=== PATIENT | female | born 1980 | race Caucasian/White ===

== ENCOUNTER 2020-06-06 10:14 | Observation (INO) | payer SELFPAY ==
[2020-06-06] VITALS (7 sets, daily range): BP systolic 106–143; BP diastolic 66–97
[~2020-06-06] VITALS: Ht 157.5 cm; Wt 80.8 kg
[~2020-06-06 10:14] MED LIST: AMOXICILLIN/CL875 MG PO; AMOXICILLIN500 MG PO; AUGMENTIN875TAB PO; BACTRIM DS1 TAB PO; CELEXA20 M1 PO; CIPRO PO; CIPRO500 MG OR; DIFLUCAN150 MG PO; DOXYCYCL HYC100 MG PO; FIORICET 50-3001 CAP PO; FLONASE NASAL50 MCG; HORMONE; HYDROCHLOROT12.5 MG PO; KETOCONAZOLE2 % EX; LEVAQUIN750 MG PO; LISINOPRIL10 MG PO; LUPRON DEPOT11.25 MG; METOPROL TAR25 M1 PO; NAPROSYN375 MG PO; NAPROSYN500 MG PO; NO MEDICATIONS; PAMIX50 MG/ML PO; PAROXETINE20 MG PO; PERCOCET 5/325M1 TAB PO; PHENERGAN12.5 MG/TA PO; PREDNISONE10 MG PO; PREDNISONE20 MG PO; TESSALON PER100 MG PO; TORADOL PO; ULTRAM50 MG PO; VENLAFAXINE H37.5 M1 PO; ZITHROMAX500 MG PO; ZOFRAN4 M1 PO
--- NOTE | 2020-06-06 10:22 | NUR ---
PATIENT AMBULATED TO ROOM WITH SLOW STEADY GAIT AND PHYSICIAN AT BEDSIDE FOR EVAL
--- NOTE | 2020-06-06 10:25 | NUR ---
INTRODUCED SELF TO PT. REPORTS SEVERE RIGHT FLANK PAIN AND BURNING WITH URINATION STARTING TODAY @ 0800. PT UNCOMFORTABLE AND UNABLE TO SIT WITHOUT DISCOMFORT. IV INITIATED TO RAC WITH BLOOD SPECICMENS OBTIANED. TOLERATED WELL.
[2020-06-06 10:41] LABS: HEMATOCRIT 44.6 % (37.0-47.0); HEMOGLOBIN 14.6 g/dl (12.0-16.0); IMMATURE GRANULOCYTES 0.4 % (0.0-5.0); MEAN CELL VOLUME 91.4 fL CALC (80.0-100.0); MEAN CORPUSCULAR HGB 29.9 pG CALC (26.0-32.0); MEAN CORPUSCULAR HGB CONC 32.7 g/dL CAL (32.0-36.0); NEUT# 9.29 thou/uL (2.00-7.15); RED BLOOD COUNT 4.88 mill/uL (4.20-5.60); RED CELL DISTRI WIDTH 14.7 % (11.5-15.5)
[2020-06-06 10:58] LABS: ALBUMIN 4.6 g/dL (3.2-5.0); ALKALINE PHOSPHATASE 93 u/l (38-126); AMYLASE 75 u/l (30-110); ANION GAP 14 (6-22 (CALC)); BILIRUBIN, TOTAL 0.5 mg/dL (0.0-1.4); BUN 15 mg/dL (7-17); BUN/CREATININE RATIO 17 (12-20 (CALC)); CARBON DIOXIDE 23 mmol/l (22-30); CHLORIDE 108 mmol/l (95-108); CREATININE 0.9 mg/dL (0.5-1.0); GFR > 60 ML/MIN (>=60 (CALC)); GFR FOR AFR.AMER. > 60 ML/MIN (>=60 (CALC)); LIPASE 49 u/l (23-300); POTASSIUM 3.8 mmol/l (3.5-5.1); SGOT/AST 30 u/l (14-36); SODIUM 141 mmol/l (137-146); TOTAL PROTEIN 8.7 g/dL (6.3-8.2)
--- NOTE | 2020-06-06 11:00 | NUR ---
PT MEDICATED WITH DILAUDID PER EDP ORDER FOR CONTINUED 03/13. PT PLACED BACK IN BED AND INSTRUCTED TO NOTIFY NURSE IF NEEDING TO GET OOB, PT SHOWED UNDERSTANDING. CALL LIGHT GIVEN.
--- NOTE | 2020-06-06 12:04 | NUR ---
DR ABRAHAM IN ROOM SPEAKING WITH PT
[2020-06-06] MEDS ORDERED: TOPROL XL50 MG PO (12:05)
[2020-06-06] MEDS ORDERED: LOPRESSOR25 M1 PO (12:05)
--- NOTE | 2020-06-06 12:10 | NUR ---
PT URINATED APPX 200 CC OF CLOUDY YELLOW URINE. SPECIMEN SENT TO LAB. PT REPORTS PAIN LEVEL 10. DISCUSSED CONT WAIT TIME FOR RESULTS. VEBRALIZED UNDERSTANDIGN. DENIES ANY NEEDS. CALL LIGHT WITHIN REACH.
[2020-06-06 12:29] LABS: URINE BILIRUBIN - DIPSTICK NEGATIVE (NEGATIVE); URINE BLOOD DIPSTICK LARGE (NEGATIVE); URINE COLOR YELLOW; URINE GLUCOSE - DIPSTICK NEGATIVE (NEGATIVE); URINE KETONE NEGATIVE (NEGATIVE); URINE PH 6.5 (4.5-8.0); URINE PROTEIN - DIPSTICK >=300 mg/dL (NEG-TRACE); URINE SPECIFIC GRAVITY 1.025; URINE UROBILINOGEN - DIPSTICK 0.2 E.U./dL (0.2)
[2020-06-06 12:30] LABS: URINE LEUK ESTERASE SMALL (NEGATIVE); URINE NITRITE - DIPSTICK POSITIVE (Negative)
[2020-06-06 12:37] LABS: URINE SQUAMOUS EPITHELIAL CELL FEW EPI/hpf (0-FEW)
[2020-06-06 12:38] LABS: URINE BACTERIA FEW hpf; URINE WBC TNTC WBC/hpf (0-5)
--- NOTE | 2020-06-06 12:45 | NUR ---
PT RESTING ON STRETHCER. C/O INCREASING PAIN LEVEL 5/10 AND NAUSEA. PT PROVIDED BLANKET PER REQUEST. DR ABRAHAM INFOMRED
--- NOTE | 2020-06-06 13:45 | NUR ---
PATIENT AMBULATED TO THE BATHROOM WITH A STEADY GAIT.
--- NOTE | 2020-06-06 14:25 | NUR ---
REPORT GIVEN TO ROYA HOSKINS ON MS
--- NOTE | 2020-06-06 14:45 | NUR ---
Admission Note Report Given to: USMAN PRYOR Transported by: X Wheelchair Stretcher Transported with: X Nurse Transporter X Patent IV O2 Percussion Instructor Location: ICU X [facility]2 PATIENT TO ROOM 278 VIA WHEELCHIAR IN STABLE CONDITION, TRANSPORTED BY GATO ROACH.
--- NOTE | 2020-06-06 19:45 | NUR ---
PT LAYING IN BED, ALERT AND AWAKE. PHYSICAL ASSESMENT COMPLETE. REPORTS PAIN AT 3/10 AND DECLINES OFFER FOR PRN ANALGESIC. PT UP TO BATHROOM AND BACK TO BED. GAIT STEADY AND BALANCED. PT REPORT HER LEGS FEEL "WEAK". URINE YELLOW AND SLIGHTLY CLOUDY. PLAN OF CARE REVIEWED, PT VERBALIZES UNDERSTANDING AND DENIES QUESTIONS. DENIES FURTHER NEEDS AT THIS TIME. CALL REDDY WITHIN REACH, AGREES TO CALL PRN.
[2020-06-07] VITALS: BP 101/64
--- NOTE | 2020-06-07 | NUR ---
PT LAYING IN BED WITH EYES CLOSED, APPEARS TO BE SLEEPING COMFORTABLY. RESPIRATIONS REGULAR AND UNLABORED. NO APPARENT DISTRESS. CALL REDDY REMAINS WITHIN REACH.
[2020-06-07 04:00] VITALS: BP 101/64
--- NOTE | 2020-06-07 04:05 | NUR ---
PT LAYING IN BED WITH EYES CLOSED, APPEARS TO BE SLEEPING COMFORTABLY. RESPIRATIONS REGULAR AND UNLABORED. NO APPARENT DISTRESS. CALL REDDY REMAINS WITHIN REACH.
[2020-06-07 06:00] LABS: IMMATURE GRANULOCYTES 0.4 % (0.0-5.0); MEAN CELL VOLUME 93.2 fL CALC (80.0-100.0); MEAN CORPUSCULAR HGB 30.1 pG CALC (26.0-32.0); MEAN CORPUSCULAR HGB CONC 32.2 g/dL CAL (32.0-36.0); NEUT# 8.06 thou/uL (2.00-7.15); RED BLOOD COUNT 3.96 mill/uL (4.20-5.60); RED CELL DISTRI WIDTH 14.8 % (11.5-15.5)
[2020-06-07 06:14] LABS: ALKALINE PHOSPHATASE 64 u/l (38-126); ANION GAP 8 (6-22 (CALC)); BILIRUBIN, TOTAL 0.7 mg/dL (0.0-1.4); BUN 11 mg/dL (7-17); BUN/CREATININE RATIO 16 (12-20 (CALC)); CARBON DIOXIDE 24 mmol/l (22-30); CHLORIDE 111 mmol/l (95-108); CREATININE 0.7 mg/dL (0.5-1.0); GFR > 60 ML/MIN (>=60 (CALC)); GFR FOR AFR.AMER. > 60 ML/MIN (>=60 (CALC)); POTASSIUM 3.8 mmol/l (3.5-5.1); SGOT/AST 21 u/l (14-36); SODIUM 140 mmol/l (137-146)
[2020-06-07 06:15] LABS: HEMATOCRIT 36.9 % (37.0-47.0); HEMOGLOBIN 11.9 g/dl (12.0-16.0)
[2020-06-07 06:26] LABS: ALBUMIN 2.9 g/dL (3.2-5.0); TOTAL PROTEIN 5.6 g/dL (6.3-8.2)
[2020-06-07 08:12] VITALS: BP 108/73
--- NOTE | 2020-06-07 08:21 | NUR ---
RECIEVED REPORT FROM GATO CADE. PT RESTING IN SEMI FOWLERS POSITION UPON ENTERING ROOM. INTRODUCED SELF TO PT AND DICUSSED POC. PT IS A/O X3. ASSESSMENT AND VITALS COMPLETED. BP 108/73, HR 80, O2 95% ON ROOM AIR. RESPIRATIONS ARE EVEN AND UNLABORED WITH NO DISTRESS NOTED. LUNG SOUNDS ARE CLEAR. HEART RHYTHM IS NORMAL. BOWEL SOUNDS ACTIVE IN ALL QUADRANTS, LAST REPORTED BM 06/05/20. RADIAL AND PEDAL PULSES STRONG. #20G IN RAC WITH IVF INFUSING PER ORDER, SITE APPEARS HEALTHY AND PATENT. PT COMPLAINS OF 5/10 PAIN IN PUBIC AREA, PT TO BE MEDICATED PER EMAR. STENT REMAINS IN PLACE. PT DENIES OF ANY ADDITIONAL NEEDS AT THIS TIME. ALL SAFTEY PRECAUTIONS ARE IN PLACE WITH CALL LIGHT IN REACH. WILL CONTINUE TO MONITOR
[2020-06-07 11:37] VITALS: BP 125/60
[2020-06-07] MEDS ORDERED: TORADOL PO (11:40)
[2020-06-07] MEDS ORDERED: TAMSULOSIN0.4 MG PO (11:46)
[2020-06-07] MEDS ORDERED: CIPROFLOXACN500 MG PO (11:47)
[2020-06-07] MEDS ORDERED: HYDROCODONE/ACE1 TAB PO (11:48)
--- NOTE | 2020-06-07 12:29 | NUR ---
PT SITTING IN HIGH ROSARIO POSITION IN BED EATING LUNCH. RESPIRATIONS ARE EVEN AND UNLBAORED ON ROOM AIR. DISCHARGE INSTRCUTIONS TO BE COMPLETED. PT DENIES OF ANY PAINS OR DISCOMFORTS AT THIS TIME. ALL SAFETY PRECAUTIONS ARE IN PLACE WITH CALL LIGHT IN REACH. WILL CONTINUE TO MONITOR
--- NOTE | 2020-06-07 13:24 | NUR ---
PT EDUCATED ON DISCHARGE INSTRUCTIONS AND NEW MEDICATIONS. PT VERBALIZEDE UNDERSTANDING. IV RMOVED WITH CATHATER STILL INTACT. PT TOLERATED WELL.PT COMPLAINS OF 5/10 PAIN.MARINE ERECTOR INFORMED BY PT THAT SHE WILL HAVE A RIDE HOME PERCOCET TO BE ADMINISTERED. WAITING FOR TRANSPORTATION. ALLL SAFETY PRECAUTIONS ARE IN PLACE WITH CALL LIGHT IN REACH. WILL CONTINUE TO MONITOR
--- NOTE | 2020-06-07 13:44 | NUR ---
Discharge instructions given. Patient verbalizes understanding of same. Discharged in stable condition via Wheelchair to Home with staff. All belongings sent with pt. PT DSICHARGED IN STABLE CONDITION VIA WHEELCHAIR ACCOMPAINED BY JITENDRA SALTER WITH ALL BELONGINGS AND DISCHARGE PAPERWORK.
== END 2020-06-07 13:44 | disposition home or self-care (01) | DRG 661 ==
LOC: ED 10:14 → ED-I 13:10 → MS2 13:23 → ED 13:23 → MS2 06-07 13:44
PROVIDERS: Emergency Medicine; ADMIT Internal Medicine; ATTEND Internal Medicine
PROC: 0TC68ZZ Extirpation of Matter from Right Ureter, Via Natural or Artificial Opening Endoscopic (ICD-10-PCS; principal; 2020-06-06)
PROC: 0T768DZ Dilation of Right Ureter with Intraluminal Device, Via Natural or Artificial Opening Endoscopic (ICD-10-PCS; 2020-06-06)
PROC: BT1DZZZ Fluoroscopy of Right Kidney, Ureter and Bladder (ICD-10-PCS; 2020-06-06)
DX: N13.6 Pyonephrosis (principal); E83.59 Other disorders of calcium metabolism; N29 Other disorders of kidney and ureter in diseases classified elsewhere; I10 Essential (primary) hypertension; F17.210 Nicotine dependence, cigarettes, uncomplicated; B96.20 Unspecified Escherichia coli [E. coli] as the cause of diseases classified elsewhere; Z87.442 Personal history of urinary calculi; Z20.822 Contact with and (suspected) exposure to COVID-19
CPT/HCPCS: J2710; Q9967

== ENCOUNTER 2021-09-01 12:33 | Inpatient (IN) | payer OTHER ==
[~2021-09-01] VITALS: Ht 157.5 cm; Wt 71.0 kg
[2021-09-01] VITALS (16 sets, daily range): BP systolic 124–171; BP diastolic 68–111
[~2021-09-01 12:33] MED LIST changes: +CIPROFLOXACN500 MG PO; +HYDROCODONE/ACE1 TAB PO; +LOPRESSOR25 M1 PO; +TAMSULOSIN0.4 MG PO; +TOPROL XL50 MG PO
--- NOTE | 2021-09-01 13:04 | NUR ---
PATIENT TO ROOM VIA WHEELCAHIR.
[2021-09-01 14:33] LABS: IMMATURE GRANULOCYTES 1.1 % (0.0-5.0); MEAN CELL VOLUME 88.7 fL CALC (80.0-100.0); MEAN CORPUSCULAR HGB 29.5 pG CALC (26.0-32.0); MEAN CORPUSCULAR HGB CONC 33.3 g/dL CAL (32.0-36.0); NEUT# 5.96 thou/uL (2.00-7.15); RED BLOOD COUNT 4.88 mill/uL (4.20-5.60); RED CELL DISTRI WIDTH 15.4 % (11.5-15.5)
[2021-09-01 14:56] LABS: HEMATOCRIT 43.3 % (37.0-47.0); HEMOGLOBIN 14.4 g/dl (12.0-16.0)
[2021-09-01 15:00] LABS: ALBUMIN 3.2 g/dL (3.2-5.0); CREATININE 1.6 mg/dL (0.5-1.0); POTASSIUM 3.2 mmol/l (3.5-5.1)
[2021-09-01 15:02] LABS: BILIRUBIN, TOTAL 1.1 mg/dL (0.0-1.4); TOTAL PROTEIN 7.3 g/dL (6.3-8.2)
[2021-09-01 18:06] LABS: URINE BILIRUBIN - DIPSTICK NEGATIVE (NEGATIVE); URINE BLOOD DIPSTICK MODERATE (NEGATIVE); URINE COLOR YELLOW; URINE GLUCOSE - DIPSTICK NEGATIVE (NEGATIVE); URINE KETONE NEGATIVE (NEGATIVE); URINE PH 6.5 (4.5-8.0); URINE PROTEIN - DIPSTICK 30 mg/dL (NEG-TRACE); URINE UROBILINOGEN - DIPSTICK 0.2 E.U./dL (0.2)
[2021-09-01 18:10] LABS: URINE LEUK ESTERASE MODERATE (NEGATIVE); URINE NITRITE - DIPSTICK POSITIVE (Negative)
[2021-09-01 18:15] LABS: URINE BACTERIA FEW hpf; URINE SQUAMOUS EPITHELIAL CELL FEW EPI/hpf (0-FEW); URINE WBC 50-100 WBC/hpf (0-5)
--- NOTE | 2021-09-01 20:00 | NUR ---
Reassessment of patient completed. No distress noted.
--- NOTE | 2021-09-01 20:58 | NUR ---
RECEIVED REPORT FROM ER NURSE.
--- NOTE | 2021-09-01 20:58 | NUR ---
REPORT CALLED TO FLOOR. PT TRANSFERED WITHOUT INCIDENT.
--- NOTE | 2021-09-01 21:01 | NUR ---
PT ARRIVED TO MED SURG FLOOR ACCOMPANIED BY ER, NURSE. PT ORIENTED TO ROOM/CALL LIGHT USE. PT IN BED; A&O X3. EVEN AND UNLABORED RESPIRATIONS; CLEAR LUNG SOUNDS UPON AUSCULTATION. HYPOACTIVE BOWEL SOUNDS X4 QUADRANTS. NO DISTRESS NOTED. PT C/O PAIN, BUT SAYS IT IS TOLERABLE. IV SITE HEALTHY AND PATENT. SKIN IS INTACT. SAFETY PRECAUTIONS IN PLACE WITH CALL LIGHT IN REACH.
--- NOTE | 2021-09-01 23:30 | NUR ---
PT C/O ABN PAIN 01/11; ADMINISTERED PAIN MEDICATION PER EMAR. NEW IVF BAG HANGING. REMINDED PT ABOUT NPO SATUS AFTER MIDNIGHT; PT SHOWED UNDERSTANDING. SAFETY PRECAUTIONS IN PLACE. CALL LIGHT WITHIN REACH.
--- NOTE | 2021-09-02 00:10 | NUR ---
PT SLEEPING. NO DISTRESS OR PAIN NOTED. SAFETY PRECAUTIONS IN PLACE WITH CALL LIGHT IN REACH.
--- NOTE | 2021-09-02 03:43 | NUR ---
PT C/O ABDOMINAL PAIN 10/; ADMINISTERES PAIN MEDICATION PER EMAR. SAFETY PRECAUTIONS IN PLACE WITH CALL LIGHT IN REACH.
[2021-09-02 04:00] VITALS: BP 131/71
--- NOTE | 2021-09-02 04:35 | NUR ---
PT SLEEPING. PT'S TEMP 102.7; ADMINISTERED TYLENOL PER EMAR. NO DISTRESS NOTED. SAFETY PRECAUTIONS IN PLACE. CALL LIGHT WITHIN REACH.
[2021-09-02 05:22] LABS: MEAN CELL VOLUME 92.7 fL CALC (80.0-100.0); MEAN CORPUSCULAR HGB CONC 31.3 g/dL CAL (32.0-36.0); RED BLOOD COUNT 3.96 mill/uL (4.20-5.60); RED CELL DISTRI WIDTH 16.8 % (11.5-15.5)
[2021-09-02 05:24] LABS: HEMOGLOBIN 11.5 g/dl (12.0-16.0)
[2021-09-02 05:25] LABS: HEMATOCRIT 36.7 % (37.0-47.0)
[2021-09-02 05:44] LABS: CREATININE 1.5 mg/dL (0.5-1.0); MAGNESIUM 1.5 mg/dL (1.6-2.3); POTASSIUM 3.4 mmol/l (3.5-5.1)
--- NOTE | 2021-09-02 07:00 | NUR ---
RECEIVE REPORT FROM JAN NICKERSON.
[2021-09-02 08:00] VITALS: BP 130/79
--- NOTE | 2021-09-02 08:00 | NUR ---
PATIENT ALERT AND ORIENTED X3. NO RESPIRATORY DISTRESS AT THIS TIME. PATIENT REFER PAIN. MEDICATIONS FOR PAIN GIVED. PATIENT IS EDUCATES ABOUT MEDICATIONS, PAIN MANAGEMENT AND NURSING PLAN FOR TODAY. PATIENT REFER UNDERSTAND.
--- NOTE | 2021-09-02 09:25 | NUR ---
PRELIMINARY CULTURE RESULTS CALLED TO . / VIALS GROWING GRAM (-) RODS. NEW ORDER TO CHANGE ROCEPHIN TO ZOSYN UNTIL FINAL C+S RESULTS.
--- NOTE | 2021-09-02 13:45 | NUR ---
PATIENT RETURNING FROM OR. RECEIVED REPORT FROM OR NURSE. PATIENT STABLE AT THIS TIME. NO PAIN. FOLLOW UP MEDICAL ORDER AND AFTER OR PROCEDURE PROTOCOL.
[2021-09-02 14:24] VITALS: BP 118/82
--- NOTE | 2021-09-02 20:00 | NUR ---
PT WALKING AROUND IN ROOM, NO DISTRESS NOTED, BED IN LOW POSITION, CALL LIGHT WITHIN REACH
[2021-09-02 23:52] VITALS: BP 157/77
--- NOTE | 2021-09-03 00:24 | NUR ---
PT IN BED SLEEPING, NO DISTRESS NOTED, BED IN LOW POSITION, CALL LIGHT IN REACH
--- NOTE | 2021-09-03 02:24 | NUR ---
PT IV INFILTRATED AND SHE IS SUPPOSED TO BE ON IV FLUID AND IV ZOSYN. 5 PEOPLE INCLUDING THE WOOD CARVING MACHINE OPERATOR HAS TRIED FOR AN IV AND BEEN UNSUCCESSFUL, CALLED DR FOX HE SAID OK TO LEAVE FOR THE MORNING AND SEE WHAT THEY CAN DO.
--- NOTE | 2021-09-03 03:47 | NUR ---
PT IN BED RESTING NOT IN ANY DISTRESS, BED IN LOW POSITION, CALL LIGHT IN REACH
[2021-09-03 04:04] VITALS: BP 159/90
--- NOTE | 2021-09-03 04:26 | NUR ---
PT HAD LOW GRADE FEVER THIS MORNING, GAVE TYLENOL
[2021-09-03 05:25] LABS: HEMOGLOBIN 10.1 g/dl (12.0-16.0); MEAN CELL VOLUME 88.6 fL CALC (80.0-100.0); MEAN CORPUSCULAR HGB 29.6 pG CALC (26.0-32.0); MEAN CORPUSCULAR HGB CONC 33.4 g/dL CAL (32.0-36.0); RED BLOOD COUNT 3.41 mill/uL (4.20-5.60); RED CELL DISTRI WIDTH 15.9 % (11.5-15.5)
[2021-09-03 05:37] LABS: HEMATOCRIT 30.2 % (37.0-47.0)
[2021-09-03 06:02] LABS: CREATININE 1.5 mg/dL (0.5-1.0); MAGNESIUM 1.8 mg/dL (1.6-2.3); POTASSIUM 3.3 mmol/l (3.5-5.1)
--- NOTE | 2021-09-03 08:00 | NUR ---
PT RESTING IN BED, COMPLAINS OF PAIN, SHE HAS NO IV AT THIS TIME AND WAS TOLD HAD NO PAIN MEDS BY MOUTH, REQUESTED MD TO ADD PO PAIN MEDS TO EMAR,
[2021-09-03 08:13] VITALS: BP 142/93
--- NOTE | 2021-09-03 12:00 | NUR ---
AFTER A COUPLE TRIES PT GOT IV IN RIGHT THUMB AREA, STARTED ZOYSN AND IV INFILTRATED. WILL TRY TO FIND ANOTHER PERSON TO GET IV IN PT
--- NOTE | 2021-09-03 17:40 | NUR ---
PT IS REFUSING FOR ANYONE ELSE TO TRY TO GET AN IV IN HER. THIS IS AFTER 3 NURSES INCLUDING GENERAL PASSENGER AGENT, FLOOR NURSE AND ICU NURSE. MD RUDDY IS AWARE THAT PT IS MISSING HER ANTIBOTICS
--- NOTE | 2021-09-03 19:15 | NUR ---
REPORT RECEIVED FROM Sommer MAJOR RN.
[2021-09-03 19:23] VITALS: BP 158/93
--- NOTE | 2021-09-03 19:58 | NUR ---
1450 GAVE PT LORATAB WITH HER SENNA, SCANNED IT BUT IT DID NOT STAY ON EMAR.
--- NOTE | 2021-09-03 20:00 | NUR ---
PATIENT ASSEMENT COMPLETED AT THIS TIME. NO IV ACCESS. PER DAY SHIFT NURSE DR WONG, WRITTER TO VERFIY WITH ABOUT PTS PROJECTIVE COURSE OF ACTION.
--- NOTE | 2021-09-03 20:09 | NUR ---
CALL TO DR FOX REGARDING IV ACCESS AND ANTIBIOTIC COURSE, POTASSIUM OF 3.3 ALSO REPORTED. ORDERS TO FOLLOW.
--- NOTE | 2021-09-04 00:06 | NUR ---
3/3 BAG OF POTASSIUM INFUSION HUNG AT THIS TIME. A YESENIA WOODSN TO WITNESS.
--- NOTE | 2021-09-04 01:10 | NUR ---
PATIENT RESTING COMOFRTABLY, DENIES ANY CURRENT NEEDS, CALL LIGHT AND BEDSIDE TABLE WITHIN REACH.
--- NOTE | 2021-09-04 03:31 | NUR ---
PATIENT AWAKE, CURRENT PAIN 8/10, PATIENT MEDICATE PATIENT PROVIDED WITH WARM BLANKETS PER REQUEST.
[2021-09-04 04:01] VITALS: BP 166/90
--- NOTE | 2021-09-04 04:22 | NUR ---
LAB IN TO DRAW MORNING LABS, PER ADVANCED MANUFACTURING CONSULTANT PATIENT VOMITING IN EMESIS BAG
[2021-09-04 05:00] LABS: HEMATOCRIT 32.1 % (37.0-47.0); HEMOGLOBIN 10.7 g/dl (12.0-16.0); MEAN CELL VOLUME 88.2 fL CALC (80.0-100.0); MEAN CORPUSCULAR HGB 29.4 pG CALC (26.0-32.0); MEAN CORPUSCULAR HGB CONC 33.3 g/dL CAL (32.0-36.0); RED BLOOD COUNT 3.64 mill/uL (4.20-5.60); RED CELL DISTRI WIDTH 15.8 % (11.5-15.5)
--- NOTE | 2021-09-04 05:15 | NUR ---
TYLEOL ADMINISTERED FOR TEMP OF 100.1
[2021-09-04 05:20] LABS: ANION GAP 11 (6-22 (CALC)); BUN 15 mg/dL (7-17); BUN/CREATININE RATIO 13 (12-20 (CALC)); CARBON DIOXIDE 19 mmol/l (22-30); CHLORIDE 112 mmol/l (95-108); CREATININE 1.1 mg/dL (0.5-1.0); GFR 55 ML/MIN (>=60 (CALC)); GFR FOR AFR.AMER. > 60 ML/MIN (>=60 (CALC)); MAGNESIUM 1.7 mg/dL (1.6-2.3); POTASSIUM 3.5 mmol/l (3.5-5.1); SODIUM 138 mmol/l (137-146)
--- NOTE | 2021-09-04 07:03 | NUR ---
PATIENT UP TO THE RESTROOM AT THIS TIME. STATES SHE HAS BEEN BLEEDING. PT DID NOT FLUSH IN ORDER TO SHOW WRITTER. MINIMAL BLOOD NOTED IN TOILET. PT H AND H REMAINS STABLE.
[2021-09-04 07:31] VITALS: BP 142/81
--- NOTE | 2021-09-04 08:00 | NUR ---
REC'D REPORT FROM SPECIAL EDUCATION PARAPROFESSIONAL.PT SLEEPING IN BED, NO S/S OF DISCOMFORT OR DISTRESS
--- NOTE | 2021-09-04 12:00 | NUR ---
PT RESTING COMFORTABLY IN BED AFTER PAIN MEDICATION ADMINISTERED. SHE STATES SHE STILL HAS NOT HAD A BOWEL MOVEMENT BUT HER STOMACH IS ACTIVELY MAKING NOISE
[2021-09-04 15:00] VITALS: BP 151/80
--- NOTE | 2021-09-04 16:00 | NUR ---
PT LAYING IN BED RESTING, NO S/S DISTRESS OR DISCOMFORT
[2021-09-04 18:43] VITALS: BP 146/72
--- NOTE | 2021-09-04 19:57 | NUR ---
REPORT GVRAS BY SIMONE. PATIENT RESTING IN BED. RESP EVEN AND UNLABORED. NO S/S OF DISTRESS NOTED. FALL AND SAFTEY PRECUATIONS IN PLACE. NO IV. NO TELE. PLAN OF CARE DISCUSSED. PATIENT INFORMED TO CALL ANY QUESTIONS OR CONCERNS.
--- NOTE | 2021-09-05 00:31 | NUR ---
PATIENT HAS A LOW GRADE FEVER OF 101.2, TYLENOL GIVEN PER MD ORDERS
[2021-09-05 04:02] VITALS: BP 146/72
--- NOTE | 2021-09-05 04:18 | NUR ---
PATIENT RESTING WITH EYES CLOSED. RESP EVEN AND UNLABORED. NO S/S OF DISTRESS NOTED. FALL AND SAFTEY PRECAUTIONS IN PLACE.
[2021-09-05 05:58] LABS: HEMATOCRIT 31.7 % (37.0-47.0); HEMOGLOBIN 10.6 g/dl (12.0-16.0); MEAN CELL VOLUME 88.3 fL CALC (80.0-100.0); MEAN CORPUSCULAR HGB 29.5 pG CALC (26.0-32.0); MEAN CORPUSCULAR HGB CONC 33.4 g/dL CAL (32.0-36.0); RED BLOOD COUNT 3.59 mill/uL (4.20-5.60); RED CELL DISTRI WIDTH 15.6 % (11.5-15.5)
[2021-09-05 06:08] LABS: ANION GAP 8 (6-22 (CALC)); BUN 11 mg/dL (7-17); BUN/CREATININE RATIO 12 (12-20 (CALC)); CHLORIDE 108 mmol/l (95-108); CREATININE 0.9 mg/dL (0.5-1.0); GFR > 60 ML/MIN (>=60 (CALC)); GFR FOR AFR.AMER. > 60 ML/MIN (>=60 (CALC)); MAGNESIUM 1.7 mg/dL (1.6-2.3); POTASSIUM 3.5 mmol/l (3.5-5.1); SODIUM 138 mmol/l (137-146)
[2021-09-05 06:18] LABS: CARBON DIOXIDE 26 mmol/l (22-30)
[2021-09-05 08:00] VITALS: BP 176/94
--- NOTE | 2021-09-05 11:19 | NUR ---
RECD REPORT FROM APPLICATIONS SUPPORT ENGINEER NURSE, PT RESTING IN BED, COMPLAINING OF PAIN, MEDICATED PT
[2021-09-05 14:15] VITALS: BP 146/88
--- NOTE | 2021-09-05 15:52 | NUR ---
PT SLEEPING, PT CAME IN TO WORK WITH PT, SHE IS NOW SITTING IN CHAIR, DENIES PAIN
[2021-09-05 19:00] VITALS: BP 161/97
--- NOTE | 2021-09-05 19:00 | NUR ---
REPORT GIVEN BY SIMONE. PATIENT RESTING IN BED WATCHING TV. C/O OF PAIN, MEDICATIED. BECKA PICC SALINE LOCKED. FALL AND SAFTEY PRECAUTIONS IN PLACE. PATIENT INFORMED TO CALL WITH ANY QUESTIONS OR CONCERNS. NO TELE. PLAN OF CARE DISCUSSED.
--- NOTE | 2021-09-06 00:46 | NUR ---
MIDNIGHT ABX STARTED. NO S/S OF DISTRESS NOTED. FALL AND SAFTEY PRECAUTIONS IN PLAC.E
[2021-09-06 03:30] VITALS: BP 153/85
--- NOTE | 2021-09-06 04:46 | NUR ---
PATIENT RESTING WITH EYES CLOSED. RESP EVEN AND UNLABORED. NO S/S OF DISTRESS NOTED. MORNING LABS DRAWN FROM [facility].
[2021-09-06 05:29] VITALS: BP 153/85
[2021-09-06 05:51] LABS: HEMOGLOBIN 9.9 g/dl (12.0-16.0); MEAN CELL VOLUME 88.1 fL CALC (80.0-100.0); MEAN CORPUSCULAR HGB 30.1 pG CALC (26.0-32.0); MEAN CORPUSCULAR HGB CONC 34.1 g/dL CAL (32.0-36.0); RED BLOOD COUNT 3.29 mill/uL (4.20-5.60); RED CELL DISTRI WIDTH 15.4 % (11.5-15.5)
[2021-09-06 05:54] LABS: ANION GAP 8 (6-22 (CALC)); BUN 14 mg/dL (7-17); BUN/CREATININE RATIO 15 (12-20 (CALC)); CARBON DIOXIDE 28 mmol/l (22-30); CHLORIDE 104 mmol/l (95-108); CREATININE 0.9 mg/dL (0.5-1.0); GFR > 60 ML/MIN (>=60 (CALC)); GFR FOR AFR.AMER. > 60 ML/MIN (>=60 (CALC)); MAGNESIUM 1.7 mg/dL (1.6-2.3); POTASSIUM 3.6 mmol/l (3.5-5.1); SODIUM 137 mmol/l (137-146)
[2021-09-06 07:16] VITALS: BP 134/85
--- NOTE | 2021-09-06 08:00 | NUR ---
PT SLEEPING IN BED, NO S/S OF DISTRESS OR DISCOMFORT
[2021-09-06] MEDS ORDERED: CEFEPIME2 GM IM (10:37)
[2021-09-06] MEDS ORDERED: AMLODIPINE BESYL5 MG PO (10:40)
[2021-09-06] MEDS ORDERED: COLACE100 MG PO (10:40)
[2021-09-06] MEDS ORDERED: HYDROCO/APAP1 TA9 PO (10:40)
--- NOTE | 2021-09-06 12:00 | NUR ---
PT RESTING IN BED, COMPLAINES OF PAIN, MEDICATED WITH PAIN MEDS REQUESTED
[2021-09-06 15:00] VITALS: BP 149/90
--- NOTE | 2021-09-06 16:00 | NUR ---
PT RESTING COMFORTABLY IN BED.
[2021-09-06 19:04] VITALS: BP 151/94
--- NOTE | 2021-09-06 20:00 | NUR ---
REPORT GIVEN BY SIMONE. PATIENT RESTING IN BED WATCHING TV. RESP EVEN AND UNLABORED. NO S/S OF DISTRESS NOTED. FALL AND SAFTEY PRECAUTIONS IN PLACE. BECKA PICC SALINE LOCKED. PLAN OF CARE DISCUSSED. PATIENT INFORMED TO CALL WITH ANY QUESTIONS OR CONCERNS.
[2021-09-07 04:15] VITALS: BP 151/89
--- NOTE | 2021-09-07 04:16 | NUR ---
PATIENT UP TO THE BATHROOM. RESP EVEN AND UNLABORED. NO S/S OF DISTRESS NOTED.
--- NOTE | 2021-09-07 07:00 | NUR ---
RECEIVE REPORT FROM KELY HOSKINS.
[2021-09-07 08:00] VITALS: BP 155/92
--- NOTE | 2021-09-07 08:00 | NUR ---
PATIENT ALERT AND ORIENTED X3. NO RESPIRATORY DISTRESS AT THIS TIME. PATIENT REPORT PAIN. GIVED TYLENOL. PATIENT IS EDUCATES ABOUT MEDICATIONS AND NURSING PLAN FOR TODAY. PATIENT REFER UNDERSTAND.
[2021-09-07 14:22] VITALS: BP 150/71
--- NOTE | 2021-09-07 19:30 | NUR ---
PATIENT UP IN THE BR AT THIS TIME-STATES NO PROBLEMS AT THIS TIME. SAFETY PRECAUTIONS REINFORCED. CALL LIGHT IN REACH. WILL CONT TO MONITOR.
[2021-09-07 20:00] VITALS: BP 136/95
--- NOTE | 2021-09-07 21:28 | NUR ---
PATIENT RESTING IN BED AT THIS TIME-AWAKE ALERT AND ORIENTEDX3. PATIENT WAS UP AND SHOWERED EARLIER. C/O HEADA XU 3/10 ON PAIN SCALE AND MEDICATED WITH TYLENOL FOR PAIN. PICC LINE TO RIGHT UPPER ARM IS INTACT AND HEALTHY. GOOD BLOOD RETURN WHEN FLUSHED PER PROTOCL. DENIES ANY DIFFICLUTY WITH URINATION AT THIS TIME. MEDICATED FOR CONSTIPATION WITH MOM 30CC PO. LUNGS ARE CLEAR. NO PERIPHERAL EDEMA NOTED. PULSES ARE PALPABLE. AWAITING DISCHARGE HOME WITH OUTPT ANTIBIOTICS. SAFETY PRECAUTIONS REINFORCED. CALL LIGHT IN REACH. WILL CONT TO MONITOR.
--- NOTE | 2021-09-07 23:07 | NUR ---
PATIENT CALLED AND C/O HEADACHE IS GETTING WORSE. ALSO C/O COLD SWEATS. MEDICATED WITH LORTAB 5/325MG PO. CALL LIGHT IN REACH. WILL CONT TO MONITOR.
--- NOTE | 2021-09-08 00:05 | NUR ---
PATIENT RESTING IN BED WATCHING TV. STATES THAT HER HEADACHE IS SLIGHTLY BETTER 8/10 ON PAIN SCALE. CEFAPIME HUNG VIA RIGHT UPPER ARM MIDLINE. CALL LIGHT IN REACH. WILL CONT TO MONITOR.
[2021-09-08 01:51] VITALS: BP 130/72
[2021-09-08 04:14] VITALS: BP 108/68
--- NOTE | 2021-09-08 04:30 | NUR ---
PATIENT APPEARS SLEEPING AT THIS TIME WITH EYES CLOSED. RESPS ARE EVEN AND UNLABORED. MIDLINE TO RIGHT UPPER ARM INTACT. CALL LIGHT IN REACH. WILL CONT TO MONITOR.
--- NOTE | 2021-09-08 07:00 | NUR ---
RECEIVE REPORT FROM CHETAN HOSKINS.
[2021-09-08 08:00] VITALS: BP 118/73
--- NOTE | 2021-09-08 08:00 | NUR ---
PATIENT ALERT AND ORIENTED X3. NO PAIN AND NO RESPIRTORY DISTRESS AT THIS TIME. PATIENT IS EDUCATES ABOUT MEDICATION, DISCHARGED AND NURSING PLAN FOR TODAY. PATIENT REFER UNDERSTAND.
[2021-09-08 11:56] LABS: BUN 18 mg/dL (7-17); BUN/CREATININE RATIO 20 (12-20 (CALC)); CARBON DIOXIDE 28 mmol/l (22-30); CHLORIDE 103 mmol/l (95-108); CREATININE 0.9 mg/dL (0.5-1.0); GFR > 60 ML/MIN (>=60 (CALC)); GFR FOR AFR.AMER. > 60 ML/MIN (>=60 (CALC)); SODIUM 138 mmol/l (137-146)
[2021-09-08 11:58] LABS: ANION GAP 11 (6-22 (CALC)); POTASSIUM 4.3 mmol/l (3.5-5.1)
[2021-09-08 12:49] LABS: HEMATOCRIT 32.7 % (37.0-47.0); HEMOGLOBIN 10.6 g/dl (12.0-16.0); IMMATURE GRANULOCYTES 0.9 % (0.0-5.0); MEAN CELL VOLUME 91.6 fL CALC (80.0-100.0); MEAN CORPUSCULAR HGB 29.7 pG CALC (26.0-32.0); MEAN CORPUSCULAR HGB CONC 32.4 g/dL CAL (32.0-36.0); NEUT# 8.7 thou/uL (2.00-7.15); RED BLOOD COUNT 3.57 mill/uL (4.20-5.60); RED CELL DISTRI WIDTH 15.7 % (11.5-15.5)
--- NOTE | 2021-09-08 13:51 | NUR ---
PATIENT DISCHARGED STABLE.
== END 2021-09-08 14:00 | disposition home or self-care (01) | DRG 854 ==
LOC: ED 12:33 → ED-I 15:08 → ED 15:08 → ED-I 17:40 → ED 18:01 → MS2 18:02
PROVIDERS: Internal Medicine; Nurse Practitioner; ADMIT Hospitalist; ATTEND Hospitalist
PROC: 0T778DZ Dilation of Left Ureter with Intraluminal Device, Via Natural or Artificial Opening Endoscopic (ICD-10-PCS; principal; 2021-09-02)
PROC: BT1F1ZZ Fluoroscopy of Left Kidney, Ureter and Bladder using Low Osmolar Contrast (ICD-10-PCS; 2021-09-02)
PROC: 05HB33Z Insertion of Infusion Device into Right Basilic Vein, Percutaneous Approach (ICD-10-PCS; 2021-09-05)
DX: A41.89 Other specified sepsis (principal); N13.6 Pyonephrosis; I12.9 Hypertensive chronic kidney disease with stage 1 through stage 4 chronic kidney disease, or unspecified chronic kidney disease; N18.9 Chronic kidney disease, unspecified; K59.00 Constipation, unspecified; F17.210 Nicotine dependence, cigarettes, uncomplicated; Z87.442 Personal history of urinary calculi; Z20.822 Contact with and (suspected) exposure to COVID-19
CPT/HCPCS: C1769; J0131; J0692; J1335; J1650; Q3014; Q9967

== ENCOUNTER 2021-09-30 10:42 | Day surgery (SDC) | payer OTHER ==
[~2021-09-30] VITALS: Ht 157.5 cm; Wt 65.8 kg
[~2021-09-30 10:42] MED LIST changes: +AMLODIPINE BESYL5 MG PO; +CEFEPIME2 GM IM; +COLACE100 MG PO; +HYDROCO/APAP1 TA9 PO
[2021-09-30] MEDS ORDERED: AMOXICILLIN250 M1 PO (11:01)
[2021-09-30 14:25] VITALS: BP 119/75
== END 2021-09-30 14:18 | disposition home or self-care (01) ==
LOC: ORM 10:42
PROVIDERS: ATTEND Urology
DX: N20.1 Calculus of ureter (principal); I10 Essential (primary) hypertension; F17.210 Nicotine dependence, cigarettes, uncomplicated; Z87.442 Personal history of urinary calculi; Z96.0 Presence of urogenital implants
CPT/HCPCS: J0131; J1956; Q9967

== ENCOUNTER 2022-04-21 21:12 | Emergency (ER) | payer OTHER ==
[~2022-04-21] VITALS: Ht 157.5 cm; Wt 65.5 kg
[~2022-04-21 21:12] MED LIST changes: +AMOXICILLIN250 M1 PO; +GOLYTELY PO; +METOPROLOL SUCC50 MG PO
[2022-04-21 21:48] VITALS: BP 127/94
[2022-04-21] MEDS ORDERED: METOPROL TAR25 MG PO (21:51)
[2022-04-21 22:00] VITALS: BP 131/100
[2022-04-21 22:06] LABS: HEMATOCRIT 38.6 % (37.0-47.0); IMMATURE GRANULOCYTES 0.3 % (0.0-5.0); MEAN CELL VOLUME 89.6 fL CALC (80.0-100.0); MEAN CORPUSCULAR HGB 30.4 pG CALC (26.0-32.0); MEAN CORPUSCULAR HGB CONC 33.9 g/dL CAL (32.0-36.0); NEUT# 17.77 thou/uL (2.00-7.15); RED BLOOD COUNT 4.31 mill/uL (4.20-5.60); RED CELL DISTRI WIDTH 13.3 % (11.5-15.5)
[2022-04-21 22:07] LABS: HEMOGLOBIN 13.1 g/dl (12.0-16.0)
[2022-04-21 22:15] LABS: ALBUMIN 4.1 g/dL (3.2-5.0); ALKALINE PHOSPHATASE 90 u/l (38-126); ANION GAP 14 (6-22 (CALC)); BILIRUBIN, TOTAL 0.7 mg/dL (0.0-1.4); BUN 9 mg/dL (7-17); BUN/CREATININE RATIO 9 (12-20 (CALC)); CARBON DIOXIDE 22 mmol/l (22-30); CHLORIDE 103 mmol/l (95-108); GFR FOR AFR.AMER. > 60 ML/MIN (>=60 (CALC)); GFR OTHER RACES > 60 ML/MIN (>=60 (CALC)); POTASSIUM 3.4 mmol/l (3.5-5.1); SGOT/AST 27 u/l (14-36); SODIUM 136 mmol/l (137-146); TOTAL PROTEIN 7.7 g/dL (6.3-8.2)
[2022-04-21] MEDS ORDERED: TAMSULOSIN0.4 MG PO (23:24)
[2022-04-21] MEDS ORDERED: BACTRIM DS1 TAB PO (23:24)
[2022-04-21] MEDS ORDERED: LORTAB5 PO (23:24)
[2022-04-21 23:42] VITALS: BP 131/100
[2022-04-22 00:18] LABS: URINE BILIRUBIN - DIPSTICK NEGATIVE (NEGATIVE); URINE BLOOD DIPSTICK SMALL (NEGATIVE); URINE COLOR YELLOW; URINE GLUCOSE - DIPSTICK NEGATIVE (NEGATIVE); URINE KETONE NEGATIVE (NEGATIVE); URINE LEUK ESTERASE LARGE (NEGATIVE); URINE NITRITE - DIPSTICK POSITIVE (Negative); URINE PROTEIN - DIPSTICK NEGATIVE (NEG-TRACE); URINE SPECIFIC GRAVITY <=1.005; URINE UROBILINOGEN - DIPSTICK 0.2 E.U./dL (0.2)
[2022-04-22 00:24] LABS: URINE BACTERIA MANY hpf; URINE MUCUS FEW hpf (NONE-FEW); URINE SQUAMOUS EPITHELIAL CELL FEW EPI/hpf (0-FEW); URINE WBC 20-50 WBC/hpf (0-5)
--- NOTE | 2022-04-25 12:18 | NUR ---
CONTACTED PT REGARDING URINE CULTURE RESULTS. PT STATES SHE IS STILL HAVING FEVERS AND NOT FEELING WELL. RECOMMENDED PT TO RETURN TO ED FOR IV ANTIBIOTICS. PT STATES SHE WILL REPORT TO THE ED LATER TODAY.
== END 2022-04-21 23:57 | disposition home or self-care (01) ==
LOC: ED 21:12
PROVIDERS: Family Medicine
DX: N13.2 Hydronephrosis with renal and ureteral calculous obstruction (principal); F17.200 Nicotine dependence, unspecified, uncomplicated; Z87.442 Personal history of urinary calculi

== ENCOUNTER 2022-08-24 15:10 | Emergency (ER) | payer OTHER ==
[~2022-08-24] VITALS: Ht 157.5 cm; Wt 68.0 kg
[~2022-08-24 15:10] MED LIST changes: +LORTAB5 PO; +METOPROL TAR25 MG PO
[2022-08-24] MEDS ORDERED: LORTAB 7.57.5 MG PO ×2 (19:10→20:16)
[2022-08-24] MEDS ORDERED: CYCLOBENZAPRINE10 MG PO ×2 (19:10→20:16)
[2022-08-24] MEDS ORDERED: NAPROXEN500 MG PO ×2 (19:10→20:16)
[2022-08-24 19:22] VITALS: BP 159/85
[2022-08-24] MEDS ORDERED: PREDNISONE10 MG PO (20:21)
== END 2022-08-24 19:22 | disposition home or self-care (01) ==
LOC: ED 15:10
DX: M43.6 Torticollis (principal); I10 Essential (primary) hypertension; F17.200 Nicotine dependence, unspecified, uncomplicated

== ENCOUNTER 2022-10-17 15:35 | Emergency (ER) | payer OTHER ==
[2022-10-17] VITALS (13 sets, daily range): BP systolic 129–156; BP diastolic 82–106
[~2022-10-17] VITALS: Ht 157.5 cm; Wt 68.6 kg
[~2022-10-17 15:35] MED LIST changes: +CYCLOBENZAPRINE10 MG PO; +LORTAB 7.57.5 MG PO; +NAPROXEN500 MG PO
[2022-10-17] MEDS ORDERED: VALIUM2 MG PO (18:26)
[2022-10-17] MEDS ORDERED: PREDNISONE10 MG PO (18:26)
[2022-10-17] MEDS ORDERED: NAPROXEN500 MG PO (18:26)
== END 2022-10-17 18:54 | disposition home or self-care (01) ==
LOC: ED 15:35
DX: M43.6 Torticollis (principal); I10 Essential (primary) hypertension; F17.200 Nicotine dependence, unspecified, uncomplicated

== ENCOUNTER 2023-05-27 19:44 | Emergency (ER) | payer SELFPAY ==
[~2023-05-27] VITALS: Ht 157.5 cm; Wt 67.0 kg
[~2023-05-27 19:44] MED LIST changes: +VALIUM2 MG PO
[2023-05-27 21:30] LABS: BASO% 0.7 % (0-3); HEMATOCRIT 42.8 % (37.0-47.0); HEMOGLOBIN 13.4 g/dl (12.0-16.0); IMMATURE GRANULOCYTES 0.2 % (0.0-5.0); LYMPH% 23.6 % (15-41); MEAN CELL VOLUME 90.1 fL CALC (80.0-100.0); MEAN CORPUSCULAR HGB 28.2 pG CALC (26.0-32.0); MEAN CORPUSCULAR HGB CONC 31.3 g/dL CAL (32.0-36.0); MONO% 14.1 % (2-13); NEUT# 3.31 thou/uL (2.00-7.15); NEUT% 61.4 % (42-76); RED BLOOD COUNT 4.75 mill/uL (4.20-5.60); RED CELL DISTRI WIDTH 14.3 % (11.5-15.5)
[2023-05-27] MEDS ORDERED: VENTOLIN HFA IN (23:10)
[2023-05-27 23:26] VITALS: BP 154/98
== END 2023-05-27 23:51 | disposition home or self-care (01) | DRG 153 ==
LOC: ED 19:44
PROVIDERS: Family Medicine
DX: J06.9 Acute upper respiratory infection, unspecified (principal); J98.01 Acute bronchospasm; I10 Essential (primary) hypertension; F17.200 Nicotine dependence, unspecified, uncomplicated; Z20.822 Contact with and (suspected) exposure to COVID-19

== ENCOUNTER 2024-05-23 14:38 | Emergency (ER) | payer SELFPAY ==
[~2024-05-23 14:38] MED LIST changes: +VENTOLIN HFA IN
== END 2024-05-23 15:50 | disposition left against medical advice (07) | DRG 951 ==
LOC: ED 14:38 → LWOBS 15:50
DX: Z53.21 Procedure and treatment not carried out due to patient leaving prior to being seen by health care provider (principal)